=== PATIENT | male | born 1990 | race Two or more races ===

== ENCOUNTER 2024-12-02 17:24 | Emergency (ER) | payer BC, OTHER ==
[~2024-12-02] VITALS: Ht 182.9 cm; Wt 118.0 kg
--- NOTE | 2024-12-02 17:50 | ECG ---
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
--- NOTE | 2024-12-02 19:21 | ECG ---
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
--- NOTE | 2024-12-02 19:25 | ED.PDOC ---
HPI Comments This is a 34-year-old male with past medical history of hypertension, came to the hospital due to chest pain since 1 week. Pain is localized at left sided, radiating to neck, describes it as pressure-like/tiredness, 5/10, worsened with exercise and associated with shortness of breaths and perioral spasm. He denies fever, cough, or any recent trauma. 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) Home medication: Does not take any medicine Allergic history: No known allergy Chief Complaint: Chest Pain Time Seen by MD: 18:28 Allergies: Coded Allergies: NO KNOWN ALLERGIES (Unverified , 12/02/24) Mode of Arrival: Ambulatory Past Medical History PAST MEDICAL HISTORY: HTN Family History Family History: Reviewed,noncontributory to illness, No family hx of Cancer, No family hx of DM, No family hx of Heart master, No family hx ofKidney master, No family hx of Liver master, No family hx of Lung master, No family hx of Stroke, Family hx of HTN Social History Smoker: Cigarettes Alcohol: Denies ETOH Use Drugs: Denies Drug Use Constitutional: denies: chills, diaphoresis, fatigue, fever, malaise, sweats, weakness, others EENTM: denies: blurred vision, double vision, ear bleeding, ear discharge, ear drainage, ear pain, ear ringing, eye pain, eye redness, hearing loss, mouth pain, mouth swelling, nasal discharge, nose bleeding, nose congestion, nose pain, photophobia, tearing, throat pain, throat swelling, voice changes, others Respiratory: reports: shortness of breath; denies: cough, hemoptysis, orthopnea, SOB at rest, SOB with excertion, stridor, wheezing, others Cardiovascular: reports: chest pain, diaphoresis; denies: dizzy spells, Dyspnea on exertion, edema, irregular heart beat, left arm pain, lightheadedness, palpitations, PND, syncope, others Gastrointestinal: denies: abdomen distended, abdominal pain, blood streaked bowels, constipated, diarrhea, dysphagia, difficulty swallowing, hematemesis, melena, nausea, poor appetite, poor fluid intake, rectal bleeding, rectal pain, vomiting, others Genitourinary: denies: burning, dysuria, flank pain, frequency, hematuria, incontinence, penile discharge, penile sore, pain, testicle pain, testicle swelling, urgency, others Neurological: denies: dizziness, fainting, headache, left sided numbness, left sided weakness, numbness, paresthesia, pre-existing deficit, right sided numbness, right sided weakness, seizure, speech problems, tingling, tremors, weakness, others Integumetry: denies: bruises, change in color, change in hair/nails, dryness, laceration, lesions, lumps, rash, wounds, others Allergic/Immunocompromised: denies: Difficulty Healing, Frequent Infections, Hives, Itching, others Hematologic/Lymphatic: denies: anemia, blood clots, easy bleeding, easy bruising, swollen glands, others Endocrine: denies: excessive hunger, excessive sweating, excessive thirst, excessive urination, flushing, intolerance to cold, intolerance to heat, unexplained weight gain, unexplained weight loss, others Psychiatric: denies: anxiety, bipolar disorder, depression, hopeless, panic disorder, schizophrenia, sleepless, suicidal, others Physical Exam General Appearance: No Apparent Distress, Normal HEENT: Normal ENT Inspection, Pharynx Normal, TMs Normal Neck: Full Range of Motion, Non-Tender, Normal, Normal Inspection Respiratory: Chest Non-Tender, Lungs Clear, No Accessory Muscle Use, No Respiratory Distress, Normal Breath Sounds Cardiovascular: No Edema, No JVD, No Murmur, No Gallop, Normal Peripheral Pulses, Regular Rate/Rhythm Breast Exam: Deferred Gastrointestinal: No Organomegaly, Non Tender, No Pulsatile Mass, Normal Bowel Sounds, Soft Genitalia: Deferred Pelvic: Deferred Rectal: Deferred Extremities: No calf tenderness, Normal capillary refill, Normal inspection, Normal range of motion, Non-tender, No pedal edema 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 Was a procedure done? Was a procedure done?: No CP Differential Dx Differential Diagnosis: Other (ACS, musculoskeletal pain, anxiety) Differential Diagnosis: Angina, Chest Wall Pain, Costochondritis, Esophageal reflux/spasm X-Ray, Labs, Meds, VS Vital Signs Date Time Temp Pulse Resp B/P (MAP) Pulse Ox O2 Delivery O2 Flow Rate FiO2 12/02/24 20:37 98.2 91 19 140/97 (111) 95 98.2 12/02/24 20:35 140/97 12/02/24 18:38 106 149/106 (120) 12/02/24 18:33 149/106 12/02/24 18:16 89 12/02/24 17:29 120 12/02/24 17:24 98.3 125 18 178/109 95 98.3 168/111 Lab Test 12/02/24 20:51 12/02/24 19:45 Range/Units Troponin I High Sensitivity < 3 L < 3 L </=54 ng/L White Blood Count 10.1 4.4-10.8 10^3/uL Red Blood Count 6.19 H 4.5-5.90 10^6/uL Hemoglobin 17.7 H 13.5-17.5 g/dL Hematocrit 52.1 41.0-53.0 % Mean Corpuscular Volume 84.2 80.0-100.0 fL Mean Corpuscular Hemoglobin 28.7 28.0-32.0 pg Mean Corpuscular Hemoglobin Concent 34.0 32.0-36.0 g/dL Red Cell Distribution Width 13.0 11.8-14.3 % Platelet Count 253 140-450 10^3/uL Mean Platelet Volume 8.6 6.9-10.8 fL Neutrophils (%) (Auto) 70.1 37.0-80.0 % Lymphocytes (%) (Auto) 24.0 10.0-50.0 % Monocytes (%) (Auto) 5.4 0.0-12.0 % Eosinophils (%) (Auto) 0.1 0.0-7.0 % Basophils (%) (Auto) 0.4 0.0-2.0 % Neutrophils # (Auto) 7.1 1.6-8.6 10 ^3/uL Lymphocytes # (Auto) 2.4 0.4-5.4 10 ^3/uL Monocytes # (Auto) 0.5 0-1.3 10 ^3/uL Eosinophils # (Auto) 0 0-0.8 10 ^3/uL Basophils # (Auto) 0 0-0.2 10 ^3/uL Nucleated Red Blood Cells 0.1 % D-Dimer, Quantitative 0.33 0.0-0.49 mg/L FEU Sodium Level 137 136-145 mmol/L Potassium Level 4.6 3.5-5.1 mmol/L Chloride Level 103 98-107 mmol/L Carbon Dioxide Level 21 20-31 mmol/L Anion Gap 13 5-15 Blood Urea Nitrogen 9 9-23 mg/dL Creatinine 0.83 0.700-1.30 mg/dL Glomerular Filtration Rate Calc 118 >90 mL/min BUN/Creatinine Ratio 10.8 10.0-20.0 Serum Glucose 97 74-106 mg/dL Calcium Level 10.1 8.7-10.4 mg/dL Total Bilirubin 0.7 0.2-1.0 mg/dL Aspartate Amino Transferase (AST) 22 13-40 U/L Alanine Aminotransferase (ALT) 41 H 7-40 U/L Alkaline Phosphatase 70 46-116 U/L Total Protein 7.9 5.7-8.2 g/dL Albumin 5.3 H 3.2-4.8 g/dL Current Medications Medications (Trade) Dose Ordered Sig/Kalen Route Start Time Stop Time Status Last Admin Clonidine HCl (Catapres Tablet) 0.1 mg ONCE ONCE PO 12/02/24 18:15 12/02/24 18:16 DC 12/02/24 18:33 Aspirin 325 mg ONCE ONCE PO 12/02/24 19:30 12/02/24 19:31 DC 12/02/24 20:35 Atorvastatin Calcium (Lipitor) 80 mg ONCE ONCE PO 12/02/24 19:30 12/02/24 19:31 DC 12/02/24 20:35 Time of 1ST Reevaluation: 20:00 Reevaluation 1ST: Improved Time of 2ND Reevaluation: 21:30 Reevaluation 2ND: Resolved Patient Education/Counseling: Diagnosis, Treatment, Prognosis, Need For Follow Up Family Education/Counseling: No Family Present Comments Patient was complaining of chest pain. Patient was given [place], atorvastatin and aspirin. Serial EKGs performed, showed normal sinus rhythm with no significant ST segment or T-wave changes Chest x-ray shows no significant intrathoracic abnormalities. Serial trop I have within normal. CBC and CMP was within normal limit Upon subsequent checkup, with the patient's chest pain had improved and had no active complaint. Detailed discussion was performed with the patient for the requirement of further ischemic workup, the patient insisted of leaving hospital and follow up on outpatient basis. Patient discharged. SEPSIS Sepsis Screen Date sepsis recognized/suspect: Dec 02, 2024 Time Sepsis recognized/suspect: 1723 Recent Procedure: No On Antibiotic Therapy: No Respiratory Rate >20: No Heart Rate >90: Yes Temp<36 C (96.8 F) or >38.3 C: No SBP <90 or MAP <65 mmHG: No New Acute Mental Status Change: No Is the patient on CPAP, BIPAP,: No Physician Orders Electrocardigram (12/02/24 17:48) Chest Xray 1 View (12/02/24 19:18) Troponin-I Hs (12/02/24 22:18) Vital Signs Date Time Temp Pulse Resp B/P (MAP) Pulse Ox O2 Delivery O2 Flow Rate FiO2 12/02/24 20:37 98.2 91 19 140/97 (111) 95 98.2 12/02/24 20:35 140/97 12/02/24 18:38 106 149/106 (120) 12/02/24 18:33 149/106 12/02/24 18:16 89 12/02/24 17:29 120 12/02/24 17:24 98.3 125 18 178/109 95 98.3 168/111 Laboratory Tests Test 12/02/24 19:45 White Blood Count 10.1 10^3/uL (4.4-10.8) Medications Medications Dose Ordered Sig/Kalen Route Start Time Stop Time Status Last Admin Dose Admin Aspirin 325 mg ONCE ONCE PO 12/02/24 19:30 12/02/24 19:31 DC 12/02/24 20:35 Atorvastatin Calcium 80 mg ONCE ONCE PO 12/02/24 19:30 12/02/24 19:31 DC 12/02/24 20:35 Clonidine HCl 0.1 mg ONCE ONCE PO 12/02/24 18:15 12/02/24 18:16 DC 12/02/24 18:33 Departure 1 Departure Time of Disposition: 21:30 Impression: Primary Impression: Chest pain Disposition: HOME / SELF CARE / HOMELESS Condition: Good Critical Care Note Critical Care Time?: No Stability Stability form required: No Heart Score Heart Score: Heart Score Response (Comments) Value History Moderate Suspicious 1 EKG Normal 0 Age <45 0 Risk Factors 1 or 2 risk factors 1 Troponin Normal limit 0 Total 2 JULIAN BETANCOURT RESJIMBO Dec 02, 2024 19:24
--- NOTE | 2024-12-02 19:50 | DVH ---
EXAMINATION: XY CHEST XRAY 1 VIEW CLINICAL HISTORY: pneumonia COMPARISON: None FINDINGS: Left costophrenic angle partially excluded. No dominant consolidations in the visualized lung [place]. No definite pleural effusions or pneumothor ax. The cardiomediastinal silhouette appears within normal limits given technique. IMPRESSION: No dominant consolidation identified at this time.
[2024-12-02 20:11] LABS: Hemoglobin 17.7 g/dL (13.5-17.5)
[2024-12-02 20:13] LABS: Hematocrit 52.1 % (41.0-53.0); Mean Corpuscular Hemoglobin 28.7 pg (28.0-32.0); Mean Corpuscular Volume 84.2 fL (80.0-100.0); Nucleated Red Blood Cells % 0.1 %
[2024-12-02 20:21] LABS: Alkaline Phosphatase 70 U/L (46-116); Anion Gap 13 (5-15); BUN/Creatinine Ratio 10.8 (10.0-20.0); Blood Urea Nitrogen 9 mg/dL (9-23); Chloride 103 mmol/L (98-107); Glucose 97 mg/dL (74-106); Potassium 4.6 mmol/L (3.5-5.1); Sodium 137 mmol/L (136-145); Total Protein 7.9 g/dL (5.7-8.2)
[2024-12-02 20:22] LABS: Bilirubin, Total 0.7 mg/dL (0.2-1.0)
[2024-12-02] MEDS: ATORVASTATIN 20 MG TAB PO ONE (20:35)
[2024-12-02] MEDS: HYDROcodone-ACET 5/325MG TAB PO ONE (20:35)
[2024-12-02 20:37] VITALS: BP 140/97; PULSE 91; RESP 19; TEMP 98.2; O2SAT 95
[2024-12-02 21:02] LABS: Alanine Aminotransferase 41 U/L (7-40); Albumin 5.3 g/dL (3.2-4.8); Calcium 10.1 mg/dL (8.7-10.4); Carbon Dioxide 21 mmol/L (20-31)
== END 2024-12-02 21:59 | disposition home or self-care (01) ==
LOC: ER 17:24
DX: R07.89 Other chest pain (principal); M54.2 Cervicalgia; R06.02 Shortness of breath; I10 Essential (primary) hypertension; F17.210 Nicotine dependence, cigarettes, uncomplicated
CPT/HCPCS: 36415; 71045; 80053; 82947; 84484; 85025; 85379; 93005

== ENCOUNTER 2025-01-21 10:09 | Inpatient (IN) | payer BC ==
[~2025-01-21] VITALS: Ht 182.9 cm; Wt 128.7 kg
--- NOTE | 2025-01-21 10:22 | ECG ---
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
[2025-01-21 11:01] LABS: Chloride 102 mmol/L (98-107); Potassium 3.9 mmol/L (3.5-5.1); Sodium 138 mmol/L (136-145)
[2025-01-21 11:02] LABS: Anion Gap 14 (5-15); Calcium 10.0 mg/dL (8.7-10.4); Carbon Dioxide 22 mmol/L (20-31)
[2025-01-21 11:07] LABS: BUN/Creatinine Ratio 12.6 (10.0-20.0); Blood Urea Nitrogen 11 mg/dL (9-23); Glucose 108 mg/dL (74-106)
--- NOTE | 2025-01-21 11:24 | ED.PDOC ---
HPI Comments 34 y/o M, with PMHx of HTN presents to the ED for CC of palpitations. Patient reports, that he has been experiencing intermittent symptoms of palpitations, substernal chest pain, and pins and needles [id number]. Patient relays, that he has seen his PCP for symptoms and was recently prescribed hypertensive Rx for symptoms; symptoms temporarily resolve however continue to reoccur. Patient further endorses, recently having blood work done and has not yet received results. Patient denies numbness, weakness, headaches, nausea, or vomiting. No other symptoms or modifying factors are present at this time. Chief Complaint: Palpitations Time Seen by MD: 11:15 Reviewed Notes: Nurses Notes, Medications, Allergies Allergies: Coded Allergies: NO KNOWN ALLERGIES (Unverified , 12/02/24) Information Source: Patient Mode of Arrival: Ambulatory Severity: Moderate Timing: Months Duration: Intermittent Prehospital treatment: None Location: Substernal Onset: At Rest Cardiac Risk Factors: HTN PE Risk Factors: None History of: None Modifying Factors: Nothing Associated Signs and Symptoms: None Past Medical History PAST MEDICAL HISTORY: HTN Family History Family History: Reviewed,noncontributory to illness, No family hx of Cancer, No family hx of DM, No family hx of Heart master, No family hx ofKidney master, No family hx of Liver master, No family hx of Lung master, No family hx of Stroke, Family hx of HTN Social History Smoker: Cigarettes Alcohol: Denies ETOH Use Drugs: Marijuana Lives In: Home Constitutional: denies: chills, diaphoresis, fatigue, fever, malaise, sweats, weakness, others EENTM: denies: blurred vision, double vision, ear bleeding, ear discharge, ear drainage, ear pain, ear ringing, eye pain, eye redness, hearing loss, mouth pain, mouth swelling, nasal discharge, nose bleeding, nose congestion, nose pain, photophobia, tearing, throat pain, throat swelling, voice changes, others Respiratory: denies: cough, hemoptysis, orthopnea, SOB at rest, shortness of breath, SOB with excertion, stridor, wheezing, others Cardiovascular: reports: chest pain, palpitations; denies: dizzy spells, diaphoresis, Dyspnea on exertion, edema, irregular heart beat, left arm pain, lightheadedness, PND, syncope, others Gastrointestinal: denies: abdomen distended, abdominal pain, blood streaked bowels, constipated, diarrhea, dysphagia, difficulty swallowing, hematemesis, melena, nausea, poor appetite, poor fluid intake, rectal bleeding, rectal pain, vomiting, others Genitourinary: denies: burning, dysuria, flank pain, frequency, hematuria, incontinence, penile discharge, penile sore, pain, testicle pain, testicle swelling, urgency, others Neurological: denies: dizziness, fainting, headache, left sided numbness, left sided weakness, numbness, paresthesia, pre-existing deficit, right sided numbness, right sided weakness, seizure, speech problems, tingling, tremors, weakness, others Musculoskeletal: denies: back pain, gout, joint pain, joint swelling, muscle pain, muscle stiffness, neck pain, others Integumetry: denies: bruises, change in color, change in hair/nails, dryness, laceration, lesions, lumps, rash, wounds, others Allergic/Immunocompromised: denies: Difficulty Healing, Frequent Infections, Hives, Itching, others Hematologic/Lymphatic: denies: anemia, blood clots, easy bleeding, easy bruising, swollen glands, others Endocrine: denies: excessive hunger, excessive sweating, excessive thirst, excessive urination, flushing, intolerance to cold, intolerance to heat, unexplained weight gain, unexplained weight loss, others Psychiatric: denies: anxiety, bipolar disorder, depression, hopeless, panic disorder, schizophrenia, sleepless, suicidal, others All Other Systems: Reviewed and Negative Physical Exam General Appearance: Moderate Distress HEENT: Normal ENT Inspection, Pharynx Normal, TMs Normal Neck: Full Range of Motion, Non-Tender, Normal, Normal Inspection Respiratory: Chest Non-Tender, Lungs Clear, No Accessory Muscle Use, No Respiratory Distress, Normal Breath Sounds Cardiovascular: No Edema, No JVD, No Murmur, No Gallop, Normal Peripheral Pulses, Regular Rate/Rhythm Breast Exam: Deferred Gastrointestinal: No Organomegaly, Non Tender, No Pulsatile Mass, Normal Bowel Sounds, Soft Genitalia: Deferred Pelvic: Deferred Rectal: Deferred Extremities: No calf tenderness, Normal capillary refill, Normal inspection, Normal range of motion, Non-tender, No pedal edema Musculoskeletal : Apperance: Normal 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 Was a procedure done?: No CP Differential Dx Differential Diagnosis: A-fib, A-Flutter, Angina, Anxiety / Panic Attack, Atrial Dysrhythmia, Electrolyte Disorder Differential Diagnosis: HTN Essential, HTN Accelerated Differential Diagnosis: Angina, Chest Wall Pain, Costochondritis, Esophageal reflux/spasm, Gastritis X-Ray, Labs, Meds, VS Vital Signs Date Time Temp Pulse Resp B/P (MAP) Pulse Ox O2 Delivery O2 Flow Rate FiO2 01/21/25 13:58 98.2 84 16 147/106 (120) 94 98.2 01/21/25 13:58 84 16 94 Room Air 01/21/25 12:59 80 01/21/25 11:12 87 01/21/25 10:18 96 01/21/25 10:10 97.7 99 18 151/104 93 97.7 Lab Test 01/21/25 11:35 01/21/25 10:38 Range/Units Troponin I High Sensitivity < 3 L < 3 L </=54 ng/L Sodium Level 138 136-145 mmol/L Potassium Level 3.9 3.5-5.1 mmol/L Chloride Level 102 98-107 mmol/L Carbon Dioxide Level 22 20-31 mmol/L Anion Gap 14 5-15 Blood Urea Nitrogen 11 9-23 mg/dL Creatinine 0.87 0.700-1.30 mg/dL Glomerular Filtration Rate Calc 116 >90 mL/min BUN/Creatinine Ratio 12.6 10.0-20.0 Serum Glucose 108 H 74-106 mg/dL Calcium Level 10.0 8.7-10.4 mg/dL Patient alert. Complaining of chest pain. Vitals stable. EKG reviewed does not show any acute changes. Blood pressure elevated. Was given clonidine. Cardiac marker within normal limits. He will need echocardiogram. Was given aspirin. Thyroid workup. Explained to the patient. Continue monitoring. Time of 1ST Reevaluation: 11:45 Reevaluation 1ST: Unchanged Patient Education/Counseling: Diagnosis, Treatment Family Education/Counseling: No Family Present SEPSIS Sepsis Screen Date sepsis recognized/suspect: Jan 21, 2025 Time Sepsis recognized/suspect: 1012 Recent Procedure: No On Antibiotic Therapy: No Respiratory Rate >20: No Heart Rate >90: Yes Temp<36 C (96.8 F) or >38.3 C: No SBP <90 or MAP <65 mmHG: No New Acute Mental Status Change: No Is the patient on CPAP, BIPAP,: No Physician Orders Electrocardigram (01/21/25 11:21) Electrocardigram (01/21/25 13:21) Vital Signs Date Time Temp Pulse Resp B/P (MAP) Pulse Ox O2 Delivery O2 Flow Rate FiO2 01/21/25 13:58 98.2 84 16 147/106 (120) 94 98.2 01/21/25 13:58 84 16 94 Room Air 01/21/25 12:59 80 01/21/25 11:12 87 01/21/25 10:18 96 01/21/25 10:10 97.7 99 18 151/104 93 97.7 Departure 1 Departure Time of Disposition: 16:23 Impression: Primary Impression: Chest pain of unknown etiology Additional Impression: Hypertensive urgency Disposition: ADMITTED INPATIENT Admit to: Med Surg Condition: Guarded Critical Care Note Critical Care Time?: Yes (90 min-critical care time only) Stability Stability form required: No Heart Score Heart Score: Heart Score Response (Comments) Value History Slightly Suspicious 0 EKG Normal 0 Age <45 0 Risk Factors 1 or 2 risk factors 1 Troponin Normal limit 0 Total 1 I personally scribed for ADONAY MIX MD ([email or web address]) on 01/21/25 at 11:24. Electronically submitted by Citlaly Raymundo ([email or web address]). ADONAY MIX MD Jan 21, 2025 11:24
[2025-01-21] MEDS: SODIUM CHLORIDE 0.9% 1,000 ML IV ONE (16:30)
[2025-01-21 16:33] LABS: Hematocrit 52.3 % (41.0-53.0); Hemoglobin 17.8 g/dL (13.5-17.5); Mean Corpuscular Hemoglobin 28.5 pg (28.0-32.0); Mean Corpuscular Volume 84.0 fL (80.0-100.0); Nucleated Red Blood Cells % 0.2 %
[2025-01-21 17:00] VITALS: BP 139/86; PULSE 78; RESP 20; TEMP 98; O2SAT 98
[2025-01-21] MEDS ORDERED: ONDANSETRON HCL 4 MG/2 ML VIAL IV PRN (17:15)
[2025-01-21] MEDS ORDERED: MORPHINE SULFATE INJ 2 MG/ml SYRG IV PRN (17:15)
[2025-01-21] MEDS ORDERED: NITROGLYCERIN 0.4 MG SL TAB SL PRN (17:15)
--- NOTE | 2025-01-21 18:22 | DVHHP2 ---
History of Present Illness Reason for Visit: Palpitations History of Present Illness 34-year-old male presents for evaluation of palpitations. Patient endorses a six-month history of intermittent palpitations. He states over the past week symptoms have become more consistent with associated substernal chest tightness. Denies any shortness for breath at the moment. No dizziness. Past Medical History Hypertension Past Surgical History Denies Family History Noncontributory Smoke: <1 pack per day ALCOHOL: none Drugs: Marijuana Lives: with Family Review of Systems Review of Systems Review of systems are currently negative otherwise addressed in HPI. Allergies: Coded Allergies: NO KNOWN ALLERGIES (Unverified , 12/02/24) Medications Current Medications Medications Dose Ordered Sig/Kalen Route Start Time Stop Time Status Last Admin Dose Admin Lisinopril 20 mg DAILY PO 01/22/25 10:00 UNV Aspirin 81 mg DAILY PO 01/22/25 10:00 UNV Temazepam 15 mg QHSP PRN PO 01/21/25 17:15 UNV Ondansetron HCl 4 mg Q4HP PRN IV 01/21/25 17:15 UNV Acetaminophen 650 mg Q6HP PRN PO 01/21/25 17:15 UNV Nitroglycerin 0.4 mg Q5MINP PRN SL 01/21/25 17:15 UNV Morphine Sulfate 2 mg Q30M PRN IV 01/21/25 17:15 UNV Exam Vital Signs Vital Signs Date Time Temp Pulse Resp B/P (MAP) Pulse Ox O2 Delivery O2 Flow Rate FiO2 01/21/25 18:01 98.0 109 20 117/88 (98) 99 98.0 01/21/25 13:58 Room Air Exam Gen: 34-year-old male in mild distress, morbidly obese Skin: Warm, dry, normal color and texture, no rash. HEENT: Normocephalic atraumatic, mucous membranes moist and pink. Neck: Cervical and supraclavicular nodes normal without enlargement, trachea is midline, thyroid gland is normal without masses. Pulmonary: Clear to auscultation and percussion bilaterally. Cardiac: Regular rate and rhythm. No murmur Abdomen: Soft, nontender, nondistended, bowel sounds present all 4 quadrants, no guarding, no rigidity, no organomegaly. Extremities: No cyanosis, clubbing, no edema Neuro: Cranial nerves II through XII grossly intact, normal affect and speech, no focal motor deficits. Labs/Xrays Labs Test 01/21/25 11:35 01/21/25 10:38 Range/Units Troponin I High Sensitivity < 3 L </=54 ng/L White Blood Count 6.6 # 4.4-10.8 10^3/uL Red Blood Count 6.23 H 4.5-5.90 10^6/uL Hemoglobin 17.8 H 13.5-17.5 g/dL Hematocrit 52.3 41.0-53.0 % Mean Corpuscular Volume 84.0 80.0-100.0 fL Mean Corpuscular Hemoglobin 28.5 28.0-32.0 pg Mean Corpuscular Hemoglobin Concent 34.0 32.0-36.0 g/dL Red Cell Distribution Width 13.8 11.8-14.3 % Platelet Count 247 140-450 10^3/uL Mean Platelet Volume 9.1 6.9-10.8 fL Neutrophils (%) (Auto) 80.4 H 37.0-80.0 % Lymphocytes (%) (Auto) 14.6 10.0-50.0 % Monocytes (%) (Auto) 4.7 0.0-12.0 % Eosinophils (%) (Auto) 0.1 0.0-7.0 % Basophils (%) (Auto) 0.2 0.0-2.0 % Neutrophils # (Auto) 5.3 1.6-8.6 10 ^3/uL Lymphocytes # (Auto) 1.0 0.4-5.4 10 ^3/uL Monocytes # (Auto) 0.3 0-1.3 10 ^3/uL Eosinophils # (Auto) 0 0-0.8 10 ^3/uL Basophils # (Auto) 0 0-0.2 10 ^3/uL Nucleated Red Blood Cells 0.2 % Sodium Level 138 136-145 mmol/L Potassium Level 3.9 3.5-5.1 mmol/L Chloride Level 102 98-107 mmol/L Carbon Dioxide Level 22 20-31 mmol/L Anion Gap 14 5-15 Blood Urea Nitrogen 11 9-23 mg/dL Creatinine 0.87 0.700-1.30 mg/dL Glomerular Filtration Rate Calc 116 >90 mL/min BUN/Creatinine Ratio 12.6 10.0-20.0 Serum Glucose 108 H 74-106 mg/dL Calcium Level 10.0 8.7-10.4 mg/dL SEPSIS Sepsis Screen Date sepsis recognized/suspect: Jan 21, 2025 Time Sepsis recognized/suspect: 1804 Recent Procedure: No On Antibiotic Therapy: No Respiratory Rate >20: No Heart Rate >90: Yes Temp<36 C (96.8 F) or >38.3 C: No SBP <90 or MAP <65 mmHG: No New Acute Mental Status Change: No Is the patient on CPAP, BIPAP,: No Physician Orders Electrocardigram (01/21/25 11:21) Electrocardigram (01/21/25 13:21) Lisinopril Tablet (Zestril Tablet) (01/22/25 10:00) Basic Metabolic Panel (01/22/25 04:00) Aspirin Tablet (01/22/25 10:00) Admit (01/21/25 17:11) Temazepam (Restoril) (01/21/25 17:15) Ondansetron Hcl (Zofran) (01/21/25 17:15) Cardiac Diet-2gna,Lofat,Lochol (01/21/25 Dinner) Echo 2d Mode Cardiac Dop (01/21/25 17:11) Condition: Fair (01/21/25 17:11) Acetaminophen Tablet (Tylenol Tablet) (01/21/25 17:15) Bedrest With Bathroom Privileg (01/21/25 17:11) Nitroglycerin Sublingual (Ntrostat Subli (01/21/25 17:15) Morphine Sulfate Injection (01/21/25 17:15) Stat Ekg For Chest Pain (01/21/25 17:11) Notify Md Of Changes From Base (01/21/25 17:11) Custom Shoe Designer And Maker For 24 Hours (01/21/25 17:11) Emergency Dysrhythmia Protocol (01/21/25 17:11) Rhythm Strips Once Every Shift (01/21/25 17:11) Oxygen By Nasal Cannula (01/21/25 17:11) Vital Signs Date Time Temp Pulse Resp B/P (MAP) Pulse Ox O2 Delivery O2 Flow Rate FiO2 01/21/25 18:01 98.0 109 20 117/88 (98) 99 98.0 01/21/25 13:58 98.2 84 16 147/106 (120) 94 98.2 01/21/25 13:58 84 16 94 Room Air 01/21/25 12:59 80 01/21/25 11:12 87 Laboratory Tests Test 01/21/25 10:38 White Blood Count 6.6 10^3/uL (4.4-10.8) # Assessment/Plan Assessment/Plan Assessment Chest pain Palpitations Hypertension Obesity Plan Admit the patient to telemetry to the hospitalist Echocardiogram pending Resume home medications Continue treatment per orders. Plan discussed with: Patient My Orders Orders - EDGAR STANTON Procedure Category Date Status Time Lisinopril Tablet PHA 01/22/25 Logged (Zestril Tablet) 10:00 Basic Metabolic Panel LAB 01/22/25 Verified 04:00 Aspirin Tablet PHA 01/22/25 Logged 10:00 Admit ADMIT 01/21/25 Transmitted 17:11 Temazepam (Restoril) PHA 01/21/25 Logged 17:15 Ondansetron Hcl PHA 01/21/25 Logged (Zofran) 17:15 Cardiac DIET 01/21/25 Transmitted Diet-2gna,Lofat,Lochol Dinner Echo 2d Mode Cardiac US 01/21/25 Logged DOP 17:11 Condition: Fair BETTE 01/21/25 In Process 17:11 Acetaminophen Tablet PHA 01/21/25 Logged (Tylenol Tablet) 17:15 Bedrest With Bathroom BETTE 01/21/25 In Process Privileg 17:11 Nitroglycerin PHA 01/21/25 Logged Sublingual (Ntrostat 17:15 Morphine Sulfate PHA 01/21/25 Logged Injection 17:15 Stat Ekg For Chest BETTE 01/21/25 In Process Pain 17:11 Notify Md Of Changes BETTE 01/21/25 In Process From Base 17:11 Custom Shoe Designer And Maker For BETTE 01/21/25 In Process 24 Hours 17:11 Emergency Dysrhythmia BETTE 01/21/25 In Process Protocol 17:11 Rhythm Strips Once BETTE 01/21/25 In Process Every Shift 17:11 Oxygen By Nasal RT 01/21/25 Transmitted Cannula 17:11 Date of Service: Jan 21, 2025 Billing Provider: EDGAR STANTON Common Visit Codes: [id number] INP/OBS CARE (HIGH) EDGAR STANTON Jan 21, 2025 18:22
--- NOTE | 2025-01-21 18:24 | ECG ---
[facility] Test Date: 2025-01-21 Test Time: 11:10:31 Pat Name: BENJY WELLS Department: ED Room: 0220T Gender: M Collision Technician: RACHNA : 1990 Requested By: ADONAY MIX Order Number: [id number] Reading MD: Jose Correa Measurements Intervals [place] Rate: 87 P: 73 LA: 190 QRS: 73 QRSD: 91 T: 50 QT: 355 QTc: 427 Interpretive Statements Sinus rhythm Baseline wander in lead(s) V4 Electronically Signed On 01-23-2025 18:44:27 PDT by Jose Correa Please click the below link to view image of tracing.
[2025-01-21 18:50] LABS: Triglycerides 117 mg/dL (< 150)
[2025-01-21 18:52] LABS: HDL Cholesterol 56 mg/dL (40-59)
[2025-01-21 18:57] LABS: Cholesterol 257 mg/dL (< 200)
--- NOTE | 2025-01-21 19:09 | DVH ---
CHEST RADIOGRAPH Indication: chest pain Technique: Single frontal view of the chest was obtained Comparison: XY CHEST XRAY 1 VIEW on DOS: 12/02/24 FINDINGS: Lines and Tubes: None Lungs: No focal consolidation. Pleura: No effusion. No pneumothorax. Cardiomediastinal contours: Unremarkable Bones: No acute osseous abnormality. IMPRESSION: 1. No acute cardiopulmonary disease.
[2025-01-21 19:13] VITALS: BP 139/81; PULSE 71; RESP 16; TEMP 98.1; O2SAT 98
[2025-01-21] MEDS: ACETAMINOPHEN 325 MG TAB PO PRN (20:16)
[2025-01-21 21:00] VITALS: BP 149/84; PULSE 72; RESP 20; TEMP 98.3; O2SAT 97
[2025-01-21 22:00] VITALS: BP 128/88; PULSE 64; RESP 18; TEMP 98.1; O2SAT 96
[2025-01-22] VITALS (9 sets, daily range): BP systolic 115–139; BP diastolic 64–86; PULSE 59–78; RESP 18–20; TEMP 97.5–98; O2SAT 0–99
--- NOTE | 2025-01-22 06:34 | ECG ---
[facility] Test Date: 2025-01-21 Test Time: 12:59:39 Pat Name: BENJY WELLS Department: ED Room: 0220T B Gender: M Gut Sorter: YAZAN : 1990 Requested By: ADONAY MIX Order Number: [id number] Reading MD: Jose Correa Measurements Intervals [place] Rate: 80 P: 52 WV: 172 QRS: 74 QRSD: 97 T: 55 QT: 380 QTc: 439 Interpretive Statements Sinus rhythm Electronically Signed On 01-23-2025 18:44:37 PDT by Jose Correa Please click the below link to view image of tracing.
[2025-01-22 07:01] LABS: Chloride 103 mmol/L (98-107); Potassium 3.9 mmol/L (3.5-5.1); Sodium 139 mmol/L (136-145)
[2025-01-22 07:02] LABS: Anion Gap 10 (5-15); Calcium 9.7 mg/dL (8.7-10.4); Carbon Dioxide 26 mmol/L (20-31)
[2025-01-22 07:07] LABS: BUN/Creatinine Ratio 6.8 (10.0-20.0); Glucose 87 mg/dL (74-106)
[2025-01-22 07:08] LABS: Blood Urea Nitrogen 5 mg/dL (9-23)
[2025-01-22] MEDS: LISINOPRIL 20 MG TAB PO SCH (10:06)
--- NOTE | 2025-01-22 14:39 | DVHPN2 ---
Reviewed: Care Plan, H&P, Labs, Medications, Previous Orders, Radiology Changes from previous H/P or p: No Changes Objective Vitals Vital Signs Date Time Temp Pulse Resp B/P (MAP) Pulse Ox O2 Delivery O2 Flow Rate FiO2 01/22/25 13:00 97.5 73 20 122/82 (95) 99 97.5 01/21/25 22:55 Room Air* 0 21 Intake/Output Intake and Output 01/22/25 07:00 Intake Total 550 ml Balance 550 ml Intake Oral 550 ml # Voids 2 Medications Current Medications Medications Dose Ordered Sig/Kalen Route Start Time Stop Time Status Last Admin Dose Admin Lisinopril 20 mg DAILY PO 01/22/25 10:00 01/22/25 10:06 20 MG Aspirin 81 mg DAILY PO 01/22/25 10:00 01/22/25 10:05 81 MG Temazepam 15 mg QHSP PRN PO 01/21/25 17:15 Ondansetron HCl 4 mg Q4HP PRN IV 01/21/25 17:15 Acetaminophen 650 mg Q6HP PRN PO 01/21/25 17:15 01/21/25 20:16 650 MG Nitroglycerin 0.4 mg Q5MINP PRN SL 01/21/25 17:15 Morphine Sulfate 2 mg Q30M PRN IV 01/21/25 17:15 Laboratory Results Laboratory Tests 01/21/25 10:38 01/22/25 05:43 Chemistry Test 01/22/25 05:43 Calcium Level 9.7 mg/dL (8.7-10.4) Labs and/or images reviewed: Labs reviewed by me, Image(s) reviewed by me Assessment/Plan Assessment/Plan Chest pain: Troponin negative, cardiology consult, echocardiogram Palpitations : TSH normal check urine drug screen Hypertension Obesity Hypercholesterolemia cholesterol 257: Lipitor 40 mg p.o. HS History of cocaine methamphetamine and marijuana abuse; he denies current use, will check urine drug screen Time 40 minutes Plan discussed with: Patient My Orders Orders - SHERINE CORDON MD Procedure Category Date Status Time * Cardiology Consult CONS 01/22/25 Transmitted 14:32 Atorvastatin (Lipitor) PHA 01/22/25 Transmitted 22:00 Drug Screen LAB 01/22/25 Verified 14:34 Date of Service: Jan 22, 2025 Billing Provider: SHERINE CORDON MD Common Visit Codes: [id number] INP/OBS CARE(HIGH) SHERINE CORDON MD Jan 22, 2025 14:39
--- NOTE | 2025-01-22 16:13 | DVHINCON2 ---
Date Seen: Jan 22, 2025 Referring Physician MD Blayne Reason for Consultation Chest pain History of Present Illness This is a pleasant 34-year-old man who presented to the emergency room with a chief complaint of chest pain for six months. The patient presents complaining of intermittent chest pain described as substernal and right-sided, pressure/tightness like, non provoked, and associated with epistaxis and head aches for the past six months but worsening during the past few weeks. He underwent multiple 12 lead electrocardiograms x3 revealing a normal sinus rhythm without evidence of ST-T wave segment changes. Serial troponin levels are negative. Past medical history includes hypertension diagnosed two months ago and currently on lisinopril therapy. Past Medical History Past medical history reviewed. No other significant than mentioned above. Past Surgical History Past surgical history reviewed. No other significant than mentioned above. Family History: Patient reports no known family medical history. Family History Family history reviewed. Father with hypertension. Otherwise unremarkable. Social History Quit E cigarette use two months ago. 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 Denies the use of alcohol. Allergies: Coded Allergies: NO KNOWN ALLERGIES (Unverified , 12/02/24) Home Meds Home medications reviewed. Current Medications Current Medications Medications (Trade) Dose Ordered Sig/Kalen Route PRN Reason Start Time Stop Time Status Last Admin Lisinopril (Zestril Tablet) 20 mg DAILY PO 01/22/25 10:00 01/22/25 10:06 Aspirin 81 mg DAILY PO 01/22/25 10:00 01/22/25 10:05 Temazepam (Restoril) 15 mg QHSP PRN PO FOR INSOMNIA 01/21/25 17:15 Ondansetron HCl (Zofran) 4 mg Q4HP PRN IV NAUSEA / VOMITING 01/21/25 17:15 Acetaminophen (Tylenol Tablet) 650 mg Q6HP PRN PO PAIN SCALE 1-3 OR TEMP>100.4 01/21/25 17:15 01/21/25 20:16 Nitroglycerin (Ntrostat Sublingual) 0.4 mg Q5MINP PRN SL FOR CHEST PAIN 01/21/25 17:15 Morphine Sulfate 2 mg Q30M PRN IV FOR CHEST PAIN 01/21/25 17:15 Atorvastatin Calcium (Lipitor) 40 mg HS PO 01/22/25 22:00 Review of Systems Constitutional: No symptom reported Ears, Nose, & Throat: Epistaxis Eyes: No symptom reported Neurological: VEGA Pulmonary/Respiratory: No symptom reported Cardiovascular: No symptom reported Gastrointestinal: No symptom reported Genitourinary: No symptom reported Musculoskeletal: Noncardiac chest pain Skin: No symptom reported Psychiatric: No symptom reported Endocrine: No symptom reported Hemotologic/Lymphatic: No symptom reported Vital Signs Vital Signs Date Time Temp Pulse Resp B/P (MAP) Pulse Ox O2 Delivery O2 Flow Rate FiO2 01/22/25 13:00 97.5 73 20 122/82 (95) 99 97.5 01/21/25 22:55 Room Air* 0 21 Physical Exam General Appearance: Cooperative. Well developed. Obese. In no acute distress Head Exam: Normal inspection Neck Exam: Normal inspection. Non-tender. Normal alignment Pulmonary/Respiratory: Chest non-tender. Clear bilateral breath sounds Cardiovascular/Chest: Regular rate and rhythm. S1, S2. NSR. No murmurs. No JVD. Peripheral Pulses: 2+ Radial (R). 2+ Radial (L). 2+ Pedal (R). 2+ Pedal (L) Abdominal Exam: Normal bowel sounds. Soft. Nontender. No hepatospenomegaly. No masses Ankle Exam: Negative ankle edema Lower extremities: Negative lower extremity edema Neuro/Mental Status: A&O x4. Coherent Thoughts/Psych: Normal thought pattern. Appropriate mood and affect. Good judgement and insight Appearance: In no acute distress Skin Exam: Normal inspection. Normal color. Warm. Dry Labs/Diagnostic Data Labs Test 01/22/25 05:43 01/21/25 11:35 01/21/25 10:38 Range/Units Sodium Level 139 136-145 mmol/L Potassium Level 3.9 3.5-5.1 mmol/L Chloride Level 103 98-107 mmol/L Carbon Dioxide Level 26 20-31 mmol/L Anion Gap 10 5-15 Blood Urea Nitrogen 5 L 9-23 mg/dL Creatinine 0.73 0.700-1.30 mg/dL Glomerular Filtration Rate Calc 122 >90 mL/min BUN/Creatinine Ratio 6.8 L 10.0-20.0 Serum Glucose 87 74-106 mg/dL Calcium Level 9.7 8.7-10.4 mg/dL Troponin I High Sensitivity < 3 L </=54 ng/L White Blood Count 6.6 # 4.4-10.8 10^3/uL Red Blood Count 6.23 H 4.5-5.90 10^6/uL Hemoglobin 17.8 H 13.5-17.5 g/dL Hematocrit 52.3 41.0-53.0 % Mean Corpuscular Volume 84.0 80.0-100.0 fL Mean Corpuscular Hemoglobin 28.5 28.0-32.0 pg Mean Corpuscular Hemoglobin Concent 34.0 32.0-36.0 g/dL Red Cell Distribution Width 13.8 11.8-14.3 % Platelet Count 247 140-450 10^3/uL Mean Platelet Volume 9.1 6.9-10.8 fL Neutrophils (%) (Auto) 80.4 H 37.0-80.0 % Lymphocytes (%) (Auto) 14.6 10.0-50.0 % Monocytes (%) (Auto) 4.7 0.0-12.0 % Eosinophils (%) (Auto) 0.1 0.0-7.0 % Basophils (%) (Auto) 0.2 0.0-2.0 % Neutrophils # (Auto) 5.3 1.6-8.6 10 ^3/uL Lymphocytes # (Auto) 1.0 0.4-5.4 10 ^3/uL Monocytes # (Auto) 0.3 0-1.3 10 ^3/uL Eosinophils # (Auto) 0 0-0.8 10 ^3/uL Basophils # (Auto) 0 0-0.2 10 ^3/uL Nucleated Red Blood Cells 0.2 % B-Type Natriuretic Peptide 32.32 0-100 pg/mL Triglycerides Level 117 < 150 mg/dL Cholesterol Level 257 H < 200 mg/dL LDL Cholesterol 199 H < 100 mg/dL HDL Cholesterol 56 40-59 mg/dL Thyroid Stimulating Hormone (TSH) 1.16 0.55-4.78 uIU/mL Assessment Noncardiac chest pain Rule out structural heart disease Dyslipidemia, newly diagnosed Hx of e-cigarette/heroin use Obesity Plan/Recommendation (Dr. Correa) The patient presents with noncardiac chest pain. A transthoracic echocardiogram has been completed with an optimal preliminary LVEF. Continue lipid lowering agent and blood pressure control. In the setting of an unremarkable echocardiogram, there is no further cardiac workup indicated at this time. Consider an outpatient stress test if deemed necessary. Kindly call if in need to re-consult. Thank you for allowing us to participate in this patient's care. Please call if you have any questions or concerns. This medical document was created using an electronic medical record system with voice recognition software and computerized dictation system. Although this document has been carefully reviewed, there might still be some phonetic and typographical errors. Occasional wrong-word or ``sound-alike substitutions may have occurred due to the inherent limitations of voice recognition software. These areas are purely typographical due to imperfections of the software programs and do not reflect any compromise in the patient's medical care. Please read the chart carefully and recognize, using context, where these substitutions have occurred. Plan discussed with: Patient, Other NYHA Physical activity limitations: NA Date of Service: Jan 22, 2025 Billing Provider: MAXX CEDILLO Cardiology Common Codes: [id number] INP/OBS CARE (High) MAXX CEDILLO Jan 22, 2025 16:13
[2025-01-22] MEDS: ATORVASTATIN 20 MG TAB PO SCH (21:16)
[2025-01-22] MEDS: TEMAZEPAM 15 MG CAP PO PRN (21:22)
[2025-01-23 04:58] VITALS: BP 114/75; PULSE 55; RESP 20; TEMP 98.2; O2SAT 96
[2025-01-23] MEDS: METHADONE PO SCH (07:58)
[2025-01-23 08:00] VITALS: PULSE 68; PULSE 74; RESP 18; O2SAT 97
[2025-01-23 09:00] VITALS: BP 139/91; PULSE 74; RESP 18; TEMP 98.4; O2SAT 97
[2025-01-23] MEDS ORDERED: ATOR-507 PO (10:14)
--- NOTE | 2025-01-23 10:18 | DVHDS2 ---
Discharge Summary Date of Admission Jan 21, 2025 at 17:11 Date of Discharge: Jan 23, 2025 Admitting Diagnosis Chest pain Wounds: None Labs/Diagnostic Data: Laboratory Results Test 01/22/25 05:43 01/21/25 11:35 01/21/25 10:38 Sodium Level 139 mmol/L (136-145) Potassium Level 3.9 mmol/L (3.5-5.1) Chloride Level 103 mmol/L (98-107) Carbon Dioxide Level 26 mmol/L (20-31) Anion Gap 10 (5-15) Blood Urea Nitrogen 5 mg/dL (9-23) Creatinine 0.73 mg/dL (0.700-1.30) Glomerular Filtration Rate Calc 122 mL/min (>90) BUN/Creatinine Ratio 6.8 (10.0-20.0) Serum Glucose 87 mg/dL (74-106) Calcium Level 9.7 mg/dL (8.7-10.4) Troponin I High Sensitivity < 3 ng/L (</=54) White Blood Count 6.6 10^3/uL (4.4-10.8) Red Blood Count 6.23 10^6/uL (4.5-5.90) Hemoglobin 17.8 g/dL (13.5-17.5) Hematocrit 52.3 % (41.0-53.0) Mean Corpuscular Volume 84.0 fL (80.0-100.0) Mean Corpuscular Hemoglobin 28.5 pg (28.0-32.0) Mean Corpuscular Hemoglobin Concent 34.0 g/dL (32.0-36.0) Red Cell Distribution Width 13.8 % (11.8-14.3) Platelet Count 247 10^3/uL (140-450) Mean Platelet Volume 9.1 fL (6.9-10.8) Neutrophils (%) (Auto) 80.4 % (37.0-80.0) Lymphocytes (%) (Auto) 14.6 % (10.0-50.0) Monocytes (%) (Auto) 4.7 % (0.0-12.0) Eosinophils (%) (Auto) 0.1 % (0.0-7.0) Basophils (%) (Auto) 0.2 % (0.0-2.0) Neutrophils # (Auto) 5.3 10 ^3/uL (1.6-8.6) Lymphocytes # (Auto) 1.0 10 ^3/uL (0.4-5.4) Monocytes # (Auto) 0.3 10 ^3/uL (0-1.3) Eosinophils # (Auto) 0 10 ^3/uL (0-0.8) Basophils # (Auto) 0 10 ^3/uL (0-0.2) Nucleated Red Blood Cells 0.2 % B-Type Natriuretic Peptide 32.32 pg/mL (0-100) Triglycerides Level 117 mg/dL (< 150) Cholesterol Level 257 mg/dL (< 200) LDL Cholesterol 199 mg/dL (< 100) HDL Cholesterol 56 mg/dL (40-59) Thyroid Stimulating Hormone (TSH) 1.16 uIU/mL (0.55-4.78) Other Laboratory Tests 01/22/25 05:43 01/21/25 10:38 Brief Hx & Hospital Course: 34-year-old male with a history of hypertension cocaine methamphetamine marijuana abuse came in for chest pain. Troponin negative x3 cardiology consult by Dr. Cardoza echocardiogram result pending patient is also had palpitation TSH normal Chest pain: Troponin negative, cardiology consult, echocardiogram cholesterol is 257 new diagnosis started on Lipitor. 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 HS History of cocaine methamphetamine and marijuana abuse; he denies current use, will check urine drug screen Discharge Disposition: Home Discharge Instruct/Medications Diet: Cardiac 2g Na,low cholest Activity: Light activity Follow Up/Referral: Follow up with the primary Dr in one week Medications: Lipitor 40 mg p.o. HS number 90 [facility] Scheduled Atorvastatin Calcium (Lipitor), 1 TAB PO QPM 39 (Time taken for discharge summary 39 minutes) Discharge Statement: "Patient was advised to return to the ER or call 911 if any headaches, dizziness, shortness of breath, chest pain, abdominal pain, bleeding, fevers, or worsening of medical condition. Patient was counseled about treatment plan, medications, possible side effects, patientverbalized understanding. All questions were answered to the best of my ability. This discharge took greater then 30 minutes in planning, reviewing documentation, counseling the patient, and discussing with other team members." ASSESSMENT ASSESSMENT Hospital Course Improved Assessment Chest pain: Troponin negative, cardiology consult, echocardiogram Palpitations : TSH normal check urine drug screen Hypertension Obesity Hypercholesterolemia cholesterol 257: Lipitor 40 mg p.o. HS History of cocaine methamphetamine and marijuana abuse; he denies current use, will check urine drug screen Date of Service: Jan 23, 2025 Billing Provider: SHERINE CORDON MD Common Visit Codes: [id number] DISCH DAY >30min SHERINE CORDON MD Jan 23, 2025 10:18
[2025-01-23 11:01] VITALS: BP 139/91; TEMP 36.9
--- NOTE | 2025-01-23 16:18 | DVHSR ---
APPROVED REPORT EXAM: Two-dimensional and M-mode echocardiogram with Doppler and color Doppler. Blood Pressure: 115/80 mmHg INDICATION Chest Pain RISK FACTORS Height: 6' , Weight: 290 DIMENSIONS LVDd4.8 (3.8-5.7cm)LA (2D)3.4 (1.9-4.0cm)Aortic Root3.8 (2.0-3.7cm) LVDs3.1 (2.5-4.0cm)LA (MM) (1.9-4.0cm)Aortic Cusp Exc2.2 (1.5-2.0cm) EF (%) 63.0 (55-70%)Rt. Atrium4.3 (1.9-4.0cm)Asc. Aorta cm IVSd1.0 (0.7-1.1cm)RV (D) (1.8-2.4cm) PWd1.1 (0.7-1.1cm) Mitral Valve MitralMitral Stenosis E wave1.00m/sMV Mean GR.mmHg A wave1.00m/sMV Peak GR.mmHg E/A ratio1.02D MVAcm2 Aortic Valve Aortic ValveAortic Stenosis V11.40m/Neal Mean GR.5mmHg V21.50m/Neal Peak GR.10mmHg LVOT Diameter2.5 (1.8-2.4cm)Doppler AVA4.58cm2 Pulmonic Valve V20.80m/s Conclusion Sinus rhythm. Biatrial enlargement and aortic root enlargement. Valves are normal. EF of 60% with normal RV function. Dopplers unremarkable. No pericardial effusion masses or vegetations.
== END 2025-01-23 11:30 | disposition home or self-care (01) | DRG 313 ==
LOC: ER 10:09 → OVERFLOW 17:11 → TELE-CENTR 22:00
PROVIDERS: ADMIT Family Medicine; ATTEND Family Medicine
DX: R07.89 Other chest pain (principal); R00.2 Palpitations; I10 Essential (primary) hypertension; E66.9 Obesity, unspecified; E78.00 Pure hypercholesterolemia, unspecified; F17.210 Nicotine dependence, cigarettes, uncomplicated; I16.0 Hypertensive urgency; Z68.38 Body mass index [BMI] 38.0-38.9, adult; Z82.49 Family history of ischemic heart disease and other diseases of the circulatory system; Z79.899 Other long term (current) drug therapy
CPT/HCPCS: 36415; 71045; 80048; 80061; 83880; 84443; 84484; 85025; 93005; 93306; 99291; 99292; G0378